=== PATIENT | male | born 1935 | race Caucasian/White ===

== ENCOUNTER → 2022-05-13 11:25 | Outpatient (CLI) | payer MEDICARE, SELFPAY ==
--- NOTE | 2022-05-13 11:50 | DI.RAD_ITS ---
Exam(s) XR CHEST 2V PA LATERAL EXAM: XR CHEST 2V PA LATERAL CLINICAL HISTORY: INFLUENZA A. TECHNIQUE: 2D digital imaging was performed. 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 Heart size is normal. The mediastinum is not widened. Mild increased markings in left lower lobe retrocardiac region noted although possibly just related t o vasculature. Mild increased markings in the lateral left lung base. No evidence of pulmonary edema. No pneumothorax. IMPRESSION: Pacemaker. TAVR. No pulmonary edema. Mild increased markings left lower lobe. Cannot exclude early infiltrate. DATA REPOSITORY: RADIATION DOSE DELIVERED:
--- NOTE | 2022-05-13 12:12 | DI.VRAD_ITS ---
PROCEDURE INFORMATION: Exam: XR Chest Exam date and time: 05/13/2022 11:50 AM Age: 87 years old Clinical indication: Other: Influenza TECHNIQUE: Imaging protocol: Radiologic exam of the chest. Views: 2 views. COMPARISON: No relevant prior studies available. FINDINGS: Tubes, catheters and devices: Right chest dual lead cardiac pacemaker. Lungs: Peribronchial thickening. Focal retrocardiac density noted on lateral view. Pleural spaces: Unremarkable. No pleural effusion. No pneumothorax. Heart/Mediastinum: TAVR. Vasculature: Coronary artery stent(s). Atherosclerotic calcification of the aorta. Bones/joints: Degenerative osseous changes. IMPRESSION: Peribronchial thickening suggestive of bronchitis/bronchiolitis with retrocardiac density reflecting atelectasis versus pneumonia. Dictated and Authenticated by: Logan Arellano MD. Ordering:RUDDY Adames MD
== END ==
PROVIDERS: Visit Provider Physician Assistant Medical
DX: R91.8 Other nonspecific abnormal finding of lung field (principal)
CPT/HCPCS: 71046

== ENCOUNTER 2022-05-13 11:28 | Outpatient (REF) | payer MEDICARE, SELFPAY ==
[2022-05-13 12:25] LABS: ALT 16 U/L (16-63); AST 13 U/L (15-37); Albumin 3.7 g/dL (3.4-5.0); Alkaline Phosphatase 51 U/L (46-116); Anion Gap 12.7 mmol/L (3-11); BUN 35 mg/dL (7-18); Bilirubin, Total 0.7 mg/dL (0.2-1.0); CO2 24.3 mmol/L (21.0-32.0); CREATININE 1.9 mg/dL (0.70-1.30); Calcium 8.6 mg/dL (8.5-10.1); Chloride 98 mmol/L (98-107); Estimated GFR 33.93 (mL/min/1.73m2); Glucose 149 mg/dL (74-106); Potassium 3.3 mmol/L (3.5-5.1); Sodium 135 mmol/L (136-145); Total Protein 6.8 g/dL (6.4-8.2)
[2022-05-15 15:14] LABS: COVID-19 RT-PCR UVMMC Result Negative (Negative)
== END 2022-05-13 11:29 | disposition home or self-care (01) ==
LOC: LBN 11:28
PROVIDERS: Visit Provider Physician Assistant Medical
DX: J09.X2 Influenza due to identified novel influenza A virus with other respiratory manifestations (principal); Z20.822 Contact with and (suspected) exposure to COVID-19
CPT/HCPCS: 80053; U0003